=== PATIENT | male | born 1970 | race Caucasian/White ===

== ENCOUNTER → 2020-10-13 | Day surgery (SDC) | payer MEDICARE ==
[~2020-10-13] MED LIST: ADVAIR 100-501 EACH INH; AMLODIPINE BESY10 MG PO; BACTRIM DS TAB1 EACH PO; BENTYL10 MG PO; CYCLOBENZAPRINE10 MG PO; DICLOFENAC SODI75 MG PO; FLEXERIL10 MG PO; HCTZ25 MG PO; IBUPROFEN800 MG PO; K-DUR20 MEQ PO; LANTUS **100 UNITS/ SQ; LIPITOR40 MG PO; METFORMIN HCL1000 M1 PO; METOPROLOL SUCC25 MG PO; NEURONTIN300 M1 PO; NORCO 5-325 TA1 EACH PO; PRILOSEC20 MG PO; PRINIVIL20 MG PO; TRAMADOL HCL50 MG PO; VICTOZA 3-0.6 MG/0.1 SC; VOLTAREN **OUT75 MG PO
[2020-10-13 13:52] LABS: BUN/CREAT RATIO (CALC) 15.8 RATIO; CREATININE 0.76 mg/dL (0.67-1.17); POTASSIUM 4.3 mmol/L (3.5-5.1)
== END | disposition home or self-care (01) ==
LOC: FAS 11:20
PROVIDERS: Orthopaedic Surgery
DX: M16.0 Bilateral primary osteoarthritis of hip (principal); E11.9 Type 2 diabetes mellitus without complications; I10 Essential (primary) hypertension; K21.9 Gastro-esophageal reflux disease without esophagitis; E78.00 Pure hypercholesterolemia, unspecified; Z79.4 Long term (current) use of insulin; Z79.899 Other long term (current) drug therapy
CPT/HCPCS: 36415; 76000; 80048; J1040; J7120; Q9967